=== PATIENT | female | born 1955 | race Caucasian/White ===

== ENCOUNTER 2024-07-16 13:36 | Emergency (ER) | payer MEDICARE, SELFPAY ==
--- NOTE | ~2024-07-16 | XR_ITS ---
XR ribs LT 2V Ordering provider: Jeff Olmstead APRN History: . FALL 4 WKS. AGO. PAIN. . Comparison: None. FINDINGS: BONES: No acute left rib fracture or fracture of the visualized osseous structures. LEFT LUNG: No effusions or infiltrates. No pneumothorax. SOFT TISSUES: Normal. IMPRESSION: No left rib fracture. Reviewed, dictated and finalized at location A. IMPRESSION: No left rib fracture.
== END 2024-07-16 15:13 | disposition home or self-care (01) ==
PROVIDERS: Emergency Provider Nurse Practitioner Family
DX: L23.7 Allergic contact dermatitis due to plants, except food (principal); S20.222A Contusion of left back wall of thorax, initial encounter; W19.XXXA Unspecified fall, initial encounter
CPT/HCPCS: 71100; 99213; G0463

== ENCOUNTER 2024-07-30 08:18 | Emergency (ER) | payer MEDICARE, SELFPAY ==
[2024-07-30 08:27] VITALS: BP 132/85; PULSE 83; RESP 16; TEMP 36.2; O2SAT 100
--- NOTE | 2024-07-30 08:59 | ED.SKABFB ---
HPI - Skin/Abscess/Foreign Bdy General Chief complaint: Skin/Abscess/Foreign Body Stated complaint: Rash Time Seen by Provider: 07/30/24 08:25 Source: patient and RN notes reviewed Mode of arrival: ambulatory Limitations: no limitations History of Present Illness HPI narrative: 69-year-old female presents [facility] complaining of rash to her arms and legs for almost a month. Patient was seen here proximally 2 weeks ago for a contact dermatitis related to poison emmy that she got in contact with at home. Patient was prescribed steroid cream and a steroid Dosepak. Patient says symptoms got somewhat better did not fully resolve and patient states that is returned and has worsened. Patient reports having a pruritic and burning rash to her lower legs and arms. Patient says it is very itchy. Patient has been trying Benadryl, calamine lotion and Kenalog cream with some relief. Patient denies any fevers, pain, body aches, chills, discharge, or any other complaints. Patient denies any significant past medical history. Patient denies starting any new medications. Related Data Home Medications ?Medication ?Instructions ?Recorded ?Confirmed ?Last Taken ?Type atorvastatin 07/30/24 Unknown History omeprazole 07/30/24 Unknown History Allergies Allergy/AdvReac Type Severity Reaction Status Date / Time No Known Allergies Allergy Verified 07/30/24 08:26 Review of Systems Review of Systems: CONSTITUTIONAL: Denies fever, chills, or sweats. EYES: Denies visual changes, redness, or discharge. ENT: Denies rhinorrhea, congestion, sore throat, or otalgia. CARDIOVASCULAR: Denies chest pain, palpitations, or edema. RESPIRATORY: Denies cough or dyspnea. GASTROINTESTINAL: Denies abdominal pain, nausea, vomiting, or diarrhea. GENITOURINARY: Denies dysuria or hematuria. SKIN: Positive for rash and itching. MUSCULOSKELETAL: Denies back pain, joint pain, or myalgia. NEUROLOGIC: Denies headache, numbness, or weakness. PSYCHIATRIC: Denies anxiety or depression. All other systems reviewed are negative, except as documented in HPI. PMFSH Comments At the time of my signature, I reviewed and agree with the nursing past medical, surgical, social, and family history. There is no relevant family history pertinent to the patient complaint. Exam Narrative: GENERAL: This is a well-nourished, well-developed adult, in no apparent distress. They are non ill-appearing, nontoxic appearing. HEAD: normocephalic, atraumatic. No swelling or rash. EYES: Sclera clear/white. Conjunctiva normal. Vision is grossly intact. Extraocular movements intact EARS: External ears normal, Hearing grossly intact. NOSE: External nose normal THROAT: Mucous membranes moist, NECK: Neck supple, CARDIOVASCULAR: Regular rate and rhythm . RESPIRATORY: Respiratory rate normal, respiratory effort nonlabored, no respiratory distress SKIN: General: There is a erythematous macular papular pruritic rash scattered throughout the patient's legs, left knee, and arms. Rash is worse on on her legs and arms. Skin is warm, not hot to touch. No rash elsewhere. No area of fluctuance or induration. NEURO: awake, alert, and oriented to person, place and time. There were no obvious focal neurologic abnormalities. EXTREMITIES: No joint tenderness, effusion, or edema noted. BACK: Nontender without deformity. Course Course Emergency Course: Portions of this record may have been created with voice recognition software Level of Care: Express Care Visit Vital Signs Vital signs: Vital Signs Temperature 97.1 F L 07/30/24 08:27 Pulse Rate 83 07/30/24 08:27 Respiratory Rate 16 07/30/24 08:27 Blood Pressure 132/85 07/30/24 08:27 Pulse Oximetry 100 07/30/24 08:27 Oxygen Delivery Room Air 07/30/24 08:27 Temperature 97.1 F L 07/30/24 08:27 Pulse Rate 83 07/30/24 08:27 Respiratory Rate 16 07/30/24 08:27 Blood Pressure 132/85 07/30/24 08:27 Pulse Oximetry 100 07/30/24 08:27 Oxygen Delivery Room Air 07/30/24 08:27 Reviewed MDM - Skin/Abscess/Foreign Bdy MDM Narrative Medical decision making narrative: Likely patient has a rebound/refractory allergic contact dermatitis from poison emmy. No Evidence of infection. Patient was given a 40 mg prednisone taper over 12 days along with Kenalog cream previously. Will try 60 mg prednisone taper over 18 days. Advised patient of close follow-up with PCP to monitor her while she takes another course of prednisone. Discussed physical exam findings. Advised supportive measures and signs/symptoms to go to the ER. Pt is appropriate for outpt treatment and f/u. Differential Diagnosis Differential diagnosis: Likely urticaria, allergic reaction to drug, cellulitis, eczema and contact dermatitis Critical Care Time Critical Care Time Critical Care Time: No Discharge Plan Discharge Clinical Impression: Contact dermatitis Qualifiers: Contact dermatitis type: unspecified Contact dermatitis trigger: unspecified trigger Qualified Code(s): L25.9 - Unspecified contact dermatitis, unspecified cause Patient Disposition: Home Condition: Stable Instructions: Contact Dermatitis (ED) Additional Instructions: Take the prednisone as directed. Take it in the morning with food. You may use [id number] topical diphenhydramine cream to help with itchiness. please try tecnu soap that you can purchase at [employer] to help remove the also poison emmy of her skin. follow directions on the bottle. Follow-up PCP in 3-5 days. Symptoms persist, You develop fevers, or any other concerns please go to the ER immediately. Patient Language: Kinyarwanda Prescriptions: New prednisone 10 mg tablet See Taper PO DAILY Qty: 63 0RF Taper: Prednisone Taper from 60 mg;12 days 60 mg DAILY for 3 Days and 0 Hour 50 mg DAILY for 3 Days and 0 Hour 40 mg DAILY for 3 Days and 0 Hour 30 mg DAILY for 3 Days and 0 Hour 20 mg DAILY for 3 Days and 0 Hour 10 mg DAILY for 3 Days and 0 Hour No Action atorvastatin omeprazole Follow-up/Referrals: PHYSICIAN,OBSERVER HELPER [Primary Care Provider] - Time of Disposition: 08:44
== END 2024-07-30 08:51 | disposition home or self-care (01) ==
DX: L25.9 Unspecified contact dermatitis, unspecified cause (principal); E78.00 Pure hypercholesterolemia, unspecified; K21.9 Gastro-esophageal reflux disease without esophagitis
CPT/HCPCS: 99213; G0463